=== PATIENT | female | born 1980 | race Caucasian/White ===

== ENCOUNTER 2022-02-17 11:30 | Day surgery (SDC) | payer OTHER ==
[~2022-02-17] VITALS: Ht 152.4 cm; Wt 114.0 kg
[~2022-02-17 11:30] MED LIST: ALBU90OI INH; Cyclobenzaprine5 MG PO; DIPH50 PO; HYDACE10B PO; HYDACE5 PO; IBUP800 PO; INHALER; NORG-EE 0.18-01 EACH PO; OXYACE5T PO; PRED10 PO; RANI150 PO; ZYRTEC10 M2 PO
== END 2022-02-17 14:00 | disposition home or self-care (01) ==
LOC: ORSCSDS 11:30
PROVIDERS: Surgery
PROC: 0DBC8ZX Excision of Ileocecal Valve, Via Natural or Artificial Opening Endoscopic, Diagnostic (ICD-10-PCS; principal; 2022-02-17 13:00)
DX: K62.5 Hemorrhage of anus and rectum (principal); Z80.0 Family history of malignant neoplasm of digestive organs; J45.909 Unspecified asthma, uncomplicated; K57.30 Diverticulosis of large intestine without perforation or abscess without bleeding; K64.8 Other hemorrhoids; K52.9 Noninfective gastroenteritis and colitis, unspecified; E66.01 Morbid (severe) obesity due to excess calories; Z68.42 Body mass index [BMI] 45.0-49.9, adult; Z79.899 Other long term (current) drug therapy
CPT/HCPCS: 88305; J2704; J7120